=== PATIENT | female | born 1965 | race Caucasian/White ===

== ENCOUNTER → 2017-07-10 14:05 | Outpatient (CLI) | payer OTHER ==
[2011-12-12 23:24] VITALS: BMI 28.2
[2017-07-10 14:16] LABS: APPEARANCE HAZY (CLEAR); BILIRUBIN NEGATIVE (NEGATIVE); COLOR STRAW (YELLOW); GLUCOSE NEGATIVE (NEGATIVE); KETONE NEGATIVE (NEGATIVE); NITRITE NEGATIVE (NEGATIVE); PROTEIN NEGATIVE (NEGATIVE); SPECIFIC GRAVITY 1.005 (1.005-1.020); UROBILINOGEN NORMAL (NORMAL)
== END | disposition home or self-care (01) ==
LOC: D.LABREF 14:05
PROVIDERS: Legal Medicine
DX: R30.0 Dysuria (principal)

== ENCOUNTER → 2019-04-23 14:02 | Outpatient (CLI) | payer BC ==
[2011-12-12 23:24] VITALS: BMI 28.2
== END | disposition home or self-care (01) ==
LOC: D.RAD 14:02
PROVIDERS: ATTEND Legal Medicine
DX: R05 Cough (principal)